=== PATIENT | female | born 1960 | race Caucasian/White ===

== ENCOUNTER 2016-05-28 08:58 | Observation (INO) | payer BC ==
[2016-05-24 16:43] LABS: BASOPHILS 0.3 %; BASOPHILS ABSOLUTE 0.02 10/3/uL (0.0-0.16); EOSINOPHILS 1.6 %; EOSINOPHILS ABSOLUTE 0.12 10/3/uL (0.0-0.53); HEMATOCRIT 41.7 % (36.0-48.0); HEMOGLOBIN 13.8 g/dL (12.0-16.0); IMMATURE GRANULOCYTES 0.3 %; IMMATURE GRANULOCYTES ABSOLUTE 0.02 10/3/uL (0.0-0.11); LYMPHOCYTES 28.4 %; LYMPHOCYTES ABSOLUTE 2.17 10/3/uL (0.67-4.30); MEAN CORPUS HGB CONC 33.1 g/dL (32.0-36.0); MEAN CORPUSCULAR HEMOGLOB 27.5 pg (26.0-34.0); MEAN CORPUSCULAR VOLUME 83.1 fL (80-100); MEAN PLATELET VOLUME 10.1 fL (9.2-13.0); MONOCYTES ABSOLUTE 0.46 10/3/uL (0.21-1.20); NEUTROPHILS 63.4 %; NEUTROPHILS ABSOLUTE 4.84 10/3/uL (2.02-8.40); PLATELET COUNT 245 10/3/uL (150-400); RBC DISTRIBUTION WIDTH 13.8 % (12.0-16.0); RED CELL COUNT 5.02 10/6/uL (4.0-5.6); WHITE BLOOD CELLS 7.6 10/3/uL (4.5-10.5)
[2016-05-24 16:44] LABS: MANUAL DIFF NO %
[2016-05-24 16:55] LABS: BUN (BLOOD UREA NITROGEN) 11 MG/DL (6-23); CALCIUM, SERUM 8.5 MG/DL (8.5-10.4); CHLORIDE, SERUM 102 MMOL/L (96-112); CO2 (CARBON DIOXIDE) 32 MMOL/L (24-34); CREATININE 0.86 MG/DL (0.55-1.02); GFR AFRICAN AMERICAN 87 ML/MIN (>=60); GFR NON AFRICAN AMERICAN 75 ML/MIN (>=60); POTASSIUM, SERUM 3.4 MMOL/L (3.5-5.3); SODIUM, SERUM 142 MMOL/L (135-148)
[2016-05-24 16:56] LABS: GLUCOSE, SERUM 131 MG/DL (60-99)
--- NOTE | ~2016-05-28 | OP ---
Record Of Operation [facility] [address] [place]. [address] NAME: SHIVAM VILLAGOMEZ : 56 STATUS : DIS Niharika PAT#: [id number] AGE: 55 ADM/REG DATE : 05/28/16 MR#: [id number] REPORT SERV DATE: 05/31/16 DICTATED BY: BUD WYNN DATE: 05/30/16 REPORT STATUS : Draft TRANSCRIBED BY: MODL DATE: 05/30/16 DATE OF PROCEDURE: 05/28/2016 PREOPERATIVE DIAGNOSIS: Squamous cell carcinoma of unknown primary. POSTOPERATIVE DIAGNOSIS: Squamous cell carcinoma of unknown primary. PROCEDURE: Left inguinal-femoral groin node dissection, CPT code 13971. Cystoscopy, CPT code 58149. SURGEON: Bud Wynn M.D. STRIPPER APPRENTICE: Danya Graham. ESTIMATED BLOOD LOSS: 75 mL. FLUIDS IN: 1200 mL of crystalloid. COMPLICATIONS: None. INDICATIONS AND FINDINGS: This is a 55-year-old female, who recently had a biopsy of a groin lymph node that returned consistent with a squamous cell carcinoma. The CT/PET scan was performed, revealing no other evidence of disease. Her office examination revealed a grossly normal vagina and cervix. Pap smear was performed, which was read as benign. A rectovaginal exam was performed. The anus revealed no evidence of tumor. There was no palpable tumor. A cystoscopy was performed in the operating room with no gross evidence of tumor in the urethra. She was noted to have approximately a 4 to 5 cm lymph node that was densely adherent to the saphenous vein with adherence to the femoral artery. The lymph nodes were dissected free of both the saphenous vein and the femoral vessel to remove the node in total; however, she elected to have a microscopic positive diagnosis in this area. The area was clearly marked with multiple hemoclips for postoperative radiation. PROCEDURE IN DETAILS: The patient was taken to the operating room, and she was placed in a supine position for administration of general anesthesia. She was then placed in dorsal lithotomy position, prepped and draped in the usual sterile fashion. An incision was made between the anterior-superior iliac spine on the left and the left pubic tubercle. It was taken down to the underlying layer of José Miguel's fascia. An inferior and superior flap was raised. The dissection was then carried down to the pectineus fascia. A saphenous vein was clearly identified and spared. The lymphatic complex that was abnormal was densely adherent to the saphenous vein and the fascia overlying the femoral artery. Again, this was dissected free of both the vein and the artery, and the lymphatic tissue surrounding this area was removed within the boundaries of the adductor longus muscle, sartorius, and inguinal ligament. The dissection was sent to pathology and labelled as left groin node dissection. At the completion of the dissection, the site was irrigated with copious amounts of warm water. All sites were noted to be hemostatic. A AZAEL drain was placed through a separate stab incision. The subcutaneous tissues were reapproximated using 0 Record Of Operation [address] [address] NAME: SHIVAM VILLAGOMEZ : 56 STATUS : DIS Niharika PAT#: [id number] AGE: 55 ADM/REG DATE : 05/28/16 MR#: [id number] REPORT SERV DATE: 05/31/16 DICTATED BY: BUD WYNN DATE: 05/30/16 REPORT STATUS : Draft TRANSCRIBED BY: TAQUERIA DATE: 05/30/16 Vicryl, and the skin was closed with running subcuticular 4-0 Monocryl and Dermabond was placed. Post procedure, the anesthesia was reversed. The patient was taken to the recovery room. KULWINDER/TAQUERIA Bud Wynn M.D. / [phone]
[~2016-05-28 08:58] MED LIST: EFFEXXR75 PO; MICARDIS HCT PO; PRILOSEC40 MG PO
[2016-05-29 05:40] LABS: BASOPHILS 0.1 %; BASOPHILS ABSOLUTE 0.01 10/3/uL (0.0-0.16); EOSINOPHILS 0 %; HEMOGLOBIN 12.1 g/dL (12.0-16.0); IMMATURE GRANULOCYTES 0.2 %; IMMATURE GRANULOCYTES ABSOLUTE 0.03 10/3/uL (0.0-0.11); LYMPHOCYTES 7.9 %; LYMPHOCYTES ABSOLUTE 1.07 10/3/uL (0.67-4.30); MEAN CORPUS HGB CONC 32.6 g/dL (32.0-36.0); MEAN CORPUSCULAR HEMOGLOB 28.2 pg (26.0-34.0); MEAN PLATELET VOLUME 10.1 fL (9.2-13.0); MONOCYTES 7.2 %; MONOCYTES ABSOLUTE 0.98 10/3/uL (0.21-1.20); NEUTROPHILS 84.6 %; NEUTROPHILS ABSOLUTE 11.54 10/3/uL (2.02-8.40); PLATELET COUNT 215 10/3/uL (150-400); RBC DISTRIBUTION WIDTH 13.9 % (12.0-16.0); RED CELL COUNT 4.29 10/6/uL (4.0-5.6)
[2016-05-29 05:41] LABS: HEMATOCRIT 37.1 % (36.0-48.0); MANUAL DIFF NO %; MEAN CORPUSCULAR VOLUME 86.5 fL (80-100); WHITE BLOOD CELLS 13.6 10/3/uL (4.5-10.5)
[2016-05-29 05:48] LABS: BUN (BLOOD UREA NITROGEN) 15 MG/DL (6-23); CALCIUM, SERUM 8.1 MG/DL (8.5-10.4); CHLORIDE, SERUM 103 MMOL/L (96-112); CO2 (CARBON DIOXIDE) 30 MMOL/L (24-34); CREATININE 1.12 MG/DL (0.55-1.02); GFR AFRICAN AMERICAN 63 ML/MIN (>=60); GFR NON AFRICAN AMERICAN 54 ML/MIN (>=60); GLUCOSE, SERUM 135 MG/DL (60-99); POTASSIUM, SERUM 3.6 MMOL/L (3.5-5.3); SODIUM, SERUM 142 MMOL/L (135-148)
[2016-05-29] MEDS ORDERED: PCET PO (11:19)
[2016-05-29] MEDS ORDERED: ZOFRANODT8 (11:20)
[2016-05-29] MEDS ORDERED: MIRALAX POWDER1 PKT PO (11:21)
== END 2016-05-29 13:30 | disposition home or self-care (01) ==
LOC: SDC 08:58 → 4EA 15:36
PROVIDERS: Obstetrics & Gynecology Gynecologic Oncology
PROC: 07BJ0ZZ Excision of Left Inguinal Lymphatic, Open Approach (ICD-10-PCS; principal; 2016-05-28 10:30)
PROC: 0TJB8ZZ Inspection of Bladder, Via Natural or Artificial Opening Endoscopic (ICD-10-PCS; 2016-05-28 10:30)
DX: C79.89 Secondary malignant neoplasm of other specified sites (principal); C80.1 Malignant (primary) neoplasm, unspecified; G43.909 Migraine, unspecified, not intractable, without status migrainosus; K21.9 Gastro-esophageal reflux disease without esophagitis; I10 Essential (primary) hypertension; F32.9 Major depressive disorder, single episode, unspecified; Z87.442 Personal history of urinary calculi; Z88.2 Allergy status to sulfonamides; Z88.8 Allergy status to other drugs, medicaments and biological substances; Z98.890 Other specified postprocedural states
CPT/HCPCS: 80048; 85025; 88307; 90686; 90732; 93005; 96372; 96374; 96375; 96376; A9270-GY; G0008; G0009; G0378; J0690; J0694; J1885; J2250; J2370; J2405; J3010

== ENCOUNTER 2016-06-23 05:30 | Day surgery (SDC) | payer BC ==
--- NOTE | ~2016-06-23 | EGD ---
EGD REPORT [facility] [address] [place] [address] NAME: YUDI BAUER : 56 STATUS : REG [facility] PAT#: [id number] AGE: 55 ADM/REG DATE : 06/23/16 MR#: [id number] REPORT SERV DATE: 06/23/16 DICTATED BY: ROSHNI MONTGOMERY DATE: 06/23/16 REPORT STATUS : Draft TRANSCRIBED BY: [facility] DATE: 06/23/16 Endoscopy Center Patient Name: Yudi Bauer Date of : 1960 Attending MD: MAGAN MONTGOMERY MD Procedure Date No Time: 06/23/2016 Procedure: Upper GI endoscopy Indications: Gastro-esophageal reflux disease, Metastativ squamous cell cancer of unknown primary Referring MD: AMY HARVEY, German Gaytan, NIKITA WYNN MD Medicines: See the Anesthesia note for documentation of the administered medications Complications: No immediate complications. Estimated blood loss: None. Procedure: Pre-Anesthesia Assessment: - ASA Grade Assessment: III - A patient with severe systemic disease. - Prior to the procedure, a History and Physical was performed, and patient medications and allergies were reviewed. The patient's tolerance of previous anesthesia was also reviewed. The risks and benefits of the procedure and the sedation options and risks were discussed with the patient. All questions were answered, and informed consent was obtained. Prior Anticoagulants: The patient has taken no previous anticoagulant or antiplatelet agents. After reviewing the risks and benefits, the patient was deemed in satisfactory condition to undergo the procedure. After obtaining informed consent, the endoscope was passed under direct vision. Throughout the procedure, the patient's blood pressure, pulse, and oxygen saturations were monitored continuously. The GIF H190 [id number] was introduced through the mouth, and advanced to the second part of duodenum. The upper GI endoscopy was accomplished without difficulty. The patient tolerated the procedure well. Findings: The examined duodenum was normal. Normal mucosa was found in the stomach. Biopsy with a cold forceps was performed for histology. Multiple 3 to 6 mm sessile polyps with no stigmata of recent bleeding were found in the stomach. These polyps were removed with a cold snare. Polyp resection was incomplete. The resected tissue was retrieved. A 4 cm hiatus hernia was present. EGD REPORT [address] [address] NAME: YUDI BAUER : 56 STATUS : REG [facility]#: [id number] AGE: 55 ADM/REG DATE : 06/23/16 MR#: [id number] REPORT SERV DATE: 06/23/16 DICTATED BY: ROSHNI MONTGOMERY DATE: 06/23/16 REPORT STATUS : Draft TRANSCRIBED BY: [employer] DATE: 06/23/16 The lower third of the esophagus was moderately tortuous. Impression: - Normal examined duodenum. - Normal mucosa was found in the stomach. Biopsied. - Multiple gastric polyps. Incomplete resection. Resected tissue retrieved. - Hiatus hernia. - Tortuous esophagus. Recommendation: - Patient has a contact number available for emergencies. The signs and symptoms of potential delayed complications were discussed with the patient. Return to normal activities tomorrow. Written discharge instructions were provided to the patient. - Regular diet. - Discharge patient to home. - Continue present medications. - Await pathology results. Procedure Code(s): --- Professional --- 29939, Esophagogastroduodenoscopy, flexible, transoral; with removal of tumor(s), polyp(s), or other lesion(s) by snare technique Diagnosis Code(s): --- Professional --- K31.7, Polyp of stomach and duodenum K44.9, Diaphragmatic hernia without obstruction or gangrene Q39.9, Congenital malformation of esophagus, unspecified K21.9, Gastro-esophageal reflux disease without esophagitis CPT copyright 2013 [employer]. All rights reserved. The codes documented in this report are preliminary and upon solar panel installer review may be revised to meet current compliance requirements. MAGAN MONTGOMERY MD 06/23/2016 7:20 AM This report has been signed electronically. Number of Addenda: 0 Note Initiated On: 06/23/2016 6:51 AM Scope Withdrawal Time 0 hours 0 minutes 0 seconds EGD REPORT [place] [address] [place] [address] NAME: YUDI BAUEROLS : 56 STATUS : REG [facility] PAT#: [id number] AGE: 55 ADM/REG DATE : 06/23/16 MR#: [id number] REPORT SERV DATE: 06/23/16 DICTATED BY: ROSHNI MONTGOMERY DATE: 06/23/16 REPORT STATUS : Draft TRANSCRIBED BY: [employer] DATE: 06/23/16 [facility] [address] [place] [address]
--- NOTE | ~2016-06-23 | EGD ---
EGD REPORT [facility] [address] [address] NAME: YUDI BAUER : 56 STATUS : REG [facility] PAT#: [id number] AGE: 55 ADM/REG DATE : 06/23/16 MR#: [id number] REPORT SERV DATE: 06/23/16 DICTATED BY: ROSHNI MONTGOMERY DATE: 06/23/16 REPORT STATUS : Draft [facility]: [facility] DATE: 06/23/16 Endoscopy Center Patient Name: Yudi Bauer Date of : 1960 Attending MD: MAGAN MONTGOMERY MD Procedure Date No Time: 06/23/2016 Procedure: Colonoscopy Indications: Screening for colorectal malignant neoplasm, This is the patient's first colonoscopy, also squamous cell carcinoma of unknown primary Referring MD: AMY HARVEY, German Gaytan, NIKITA WYNN MD Medicines: See the Anesthesia note for documentation of the administered medications Complications: No immediate complications. Estimated blood loss: Minimal. Procedure: Pre-Anesthesia Assessment: - ASA Grade Assessment: III - A patient with severe systemic disease. - Prior to the procedure, a History and Physical was performed, and patient medications and allergies were reviewed. The patient's tolerance of previous anesthesia was also reviewed. The risks and benefits of the procedure and the sedation options and risks were discussed with the patient. All questions were answered, and informed consent was obtained. Prior Anticoagulants: The patient has taken no previous anticoagulant or antiplatelet agents. After reviewing the risks and benefits, the patient was deemed in satisfactory condition to undergo the procedure. After I obtained informed consent, the scope was passed under direct vision. Throughout the procedure, the patient's blood pressure, pulse, and oxygen saturations were monitored continuously. The PCF [id number] was introduced through the anus and advanced to the cecum, identified by appendiceal orifice and ileocecal valve. The ileocecal valve, appendiceal orifice and rectum were photographed. The entire colon was examined. The colonoscopy was technically difficult and complex due to a tortuous colon and very angulated and fixed sigmoid colon. Successful completion of the procedure was aided by using scope torsion. The patient tolerated the procedure well. The quality of the bowel preparation was adequate. EGD REPORT [address] [address] NAME: YUDI BAUER : 56 STATUS : REG [facility]#: [id number] AGE: 55 ADM/REG DATE : 06/23/16 MR#: [id number] REPORT SERV DATE: 06/23/16 DICTATED BY: ROSHNI MONTGOMERY DATE: 06/23/16 REPORT STATUS : Draft TRANSCRIBED BY: [employer] DATE: 06/23/16 Findings: The perianal and digital rectal examinations were normal. A sessile polyp was found in the proximal transverse colon. The polyp was 3 mm in size. The polyp was removed with a cold biopsy forceps. Resection and retrieval were complete. A sessile polyp was found in the mid transverse colon. The polyp was 6 mm in size. The polyp was removed with a cold snare. Resection and retrieval were complete. A sessile polyp was found at 20 cm proximal to the anus. The polyp was 12 mm in size. The polyp was removed with a hot snare. Resection and retrieval were complete. A sessile polyp was found at 15 cm proximal to the anus. The polyp was 20 mm in size. The polyp was removed with a hot snare. Resection and retrieval were complete. A few small and large-mouthed diverticula were found in the entire colon. Non-bleeding internal hemorrhoids were found during retroflexion and were Grade I (internal hemorrhoids that do not prolapse). Impression: - One 3 mm polyp in the proximal transverse colon. Resected and retrieved. - One 6 mm polyp in the mid transverse colon. Resected and retrieved. - One 12 mm polyp at 20 cm proximal to the anus. Resected and retrieved. - One 20 mm polyp at 15 cm proximal to the anus. Resected and retrieved. - Diverticulosis in the entire examined colon. - Non-bleeding internal hemorrhoids. Recommendation: - Patient has a contact number available for emergencies. The signs and symptoms of potential delayed complications were discussed with the patient. Return to normal activities tomorrow. Written discharge instructions were provided to the patient. - High fiber diet indefinitely. - Discharge patient to home. - Continue present medications. - Await pathology results. - Repeat colonoscopy in 2 years for surveillance. Procedure Code(s): --- Professional --- 03414, Colonoscopy, flexible, proximal to splenic flexure; with removal of tumor(s), polyp(s), or other lesion(s) by snare technique 31828, 59, Colonoscopy, flexible, proximal to splenic flexure; with biopsy, single or multiple EGD REPORT [address] [place]. [address] NAME: YUDI BAUER : 56 STATUS : REG [facility]#: [id number] AGE: 55 ADM/REG DATE : 06/23/16 MR#: [id number] REPORT SERV DATE: 06/23/16 DICTATED BY: ROSHNI MONTGOMERY DATE: 06/23/16 REPORT STATUS : Draft TRANSCRIBED BY: [employer] DATE: 06/23/16 Diagnosis Code(s): --- Professional --- D12.6, Benign neoplasm of colon, unspecified D12.3, Benign neoplasm of transverse colon K64.0, First degree hemorrhoids K57.30, Diverticulosis of large intestine without perforation or abscess without bleeding Z12.11, Encounter for screening for malignant neoplasm of colon CPT copyright 2013 [employer] [place]. All rights reserved. The codes documented in this report are preliminary and upon inclusion intern review may be revised to meet current compliance requirements. MAGAN MONTGOMERY MD 06/23/2016 7:58 AM This report has been signed electronically. Number of Addenda: 0 Note Initiated On: 06/23/2016 6:51 AM Scope Withdrawal Time 0 hours 27 minutes 48 seconds [address] [place] [address]
[~2016-06-23 05:30] MED LIST changes: +MIRALAX POWDER1 PKT PO; +PCET PO; +ZOFRANODT8
== END 2016-06-23 23:59 | disposition home or self-care (01) ==
LOC: DMU 05:30
PROVIDERS: Internal Medicine Gastroenterology
PROC: 0DBF8ZX Excision of Right Large Intestine, Via Natural or Artificial Opening Endoscopic, Diagnostic (ICD-10-PCS; 2016-06-23)
PROC: 0DB68ZX Excision of Stomach, Via Natural or Artificial Opening Endoscopic, Diagnostic (ICD-10-PCS; principal; 2016-06-23 07:00)
PROC: 0DB68ZX Excision of Stomach, Via Natural or Artificial Opening Endoscopic, Diagnostic (ICD-10-PCS; 2016-06-23 07:00)
PROC: 0DBE8ZX Excision of Large Intestine, Via Natural or Artificial Opening Endoscopic, Diagnostic (ICD-10-PCS; 2016-06-23 07:00)
PROC: 0DBL8ZX Excision of Transverse Colon, Via Natural or Artificial Opening Endoscopic, Diagnostic (ICD-10-PCS; 2016-06-23 07:00)
DX: Z12.11 Encounter for screening for malignant neoplasm of colon (principal); D12.3 Benign neoplasm of transverse colon; K64.0 First degree hemorrhoids; K57.30 Diverticulosis of large intestine without perforation or abscess without bleeding; D13.1 Benign neoplasm of stomach; K31.7 Polyp of stomach and duodenum; K44.9 Diaphragmatic hernia without obstruction or gangrene; K21.9 Gastro-esophageal reflux disease without esophagitis; I10 Essential (primary) hypertension; F41.9 Anxiety disorder, unspecified; G43.909 Migraine, unspecified, not intractable, without status migrainosus; F32.9 Major depressive disorder, single episode, unspecified; Z88.2 Allergy status to sulfonamides; Z88.0 Allergy status to penicillin; Z88.5 Allergy status to narcotic agent; Z88.6 Allergy status to analgesic agent; Z88.8 Allergy status to other drugs, medicaments and biological substances; Z90.89 Acquired absence of other organs; Z98.890 Other specified postprocedural states
CPT/HCPCS: 80048; 85025; 88305; 93005; J2250; J2370; J2405; J2550

== ENCOUNTER 2016-06-24 12:49 | Day surgery (SDC) | payer BC ==
[2016-06-23 11:00] LABS: BASOPHILS 0.4 %; BASOPHILS ABSOLUTE 0.03 10/3/uL (0.0-0.16); EOSINOPHILS 1.1 %; EOSINOPHILS ABSOLUTE 0.09 10/3/uL (0.0-0.53); HEMATOCRIT 40.6 % (36.0-48.0); HEMOGLOBIN 13.6 g/dL (12.0-16.0); IMMATURE GRANULOCYTES 0.2 %; IMMATURE GRANULOCYTES ABSOLUTE 0.02 10/3/uL (0.0-0.11); LYMPHOCYTES 18.3 %; LYMPHOCYTES ABSOLUTE 1.52 10/3/uL (0.67-4.30); MEAN CORPUS HGB CONC 33.5 g/dL (32.0-36.0); MEAN CORPUSCULAR HEMOGLOB 28.2 pg (26.0-34.0); MEAN CORPUSCULAR VOLUME 84.1 fL (80-100); MEAN PLATELET VOLUME 10.8 fL (9.2-13.0); MONOCYTES 8.1 %; MONOCYTES ABSOLUTE 0.67 10/3/uL (0.21-1.20); NEUTROPHILS 71.9 %; NEUTROPHILS ABSOLUTE 5.99 10/3/uL (2.02-8.40); PLATELET COUNT 229 10/3/uL (150-400); RBC DISTRIBUTION WIDTH 13.8 % (12.0-16.0); RED CELL COUNT 4.83 10/6/uL (4.0-5.6); WHITE BLOOD CELLS 8.3 10/3/uL (4.5-10.5)
[2016-06-23 11:01] LABS: MANUAL DIFF NO %
[2016-06-23 11:12] LABS: CALCIUM, SERUM 8.6 MG/DL (8.5-10.4); CHLORIDE, SERUM 98 MMOL/L (96-112); CO2 (CARBON DIOXIDE) 33 MMOL/L (24-34); GFR AFRICAN AMERICAN 82 ML/MIN (>=60); GFR NON AFRICAN AMERICAN 71 ML/MIN (>=60); GLUCOSE, SERUM 110 MG/DL (60-99); POTASSIUM, SERUM 3.5 MMOL/L (3.5-5.3); SODIUM, SERUM 140 MMOL/L (135-148)
[2016-06-23 11:13] LABS: BUN (BLOOD UREA NITROGEN) 10 MG/DL (6-23)
--- NOTE | ~2016-06-24 | OP ---
Record Of Operation [facility] [address] [place]. [address] NAME: SHIVAM VILLAGOMEZ : 56 STATUS : [facility]#: [id number] AGE: 55 ADM/REG DATE : 06/24/16 MR#: [id number] REPORT SERV DATE: 06/24/16 DICTATED BY: ARYA RYAN DATE: 06/24/16 REPORT STATUS : Draft TRANSCRIBED BY: MODL DATE: 06/24/16 DATE OF PROCEDURE: 06/24/2016 PREOPERATIVE DIAGNOSIS: Squamous cell carcinoma of unknown primary. POSTOPERATIVE DIAGNOSIS: Squamous cell carcinoma of unknown primary. PROCEDURE: Right IJ port. SURGEON: Arya Ryan M.D. ANESTHESIA: Local with sedation. COMPLICATIONS: None. ESTIMATED BLOOD LOSS: 30 mL. HISTORY: The patient is a 55-year-old female in need of a port for chemotherapy. The risks, benefits, and alternatives were discussed in detail with the patient. The patient expressed understanding and desire to proceed DESCRIPTION OF PROCEDURE: The patient was taken to the operating room and placed in the supine position. She was given IV sedation complication. Her neck and chest were prepped and draped in a sterile fashion. Ultrasound was used to identify the internal jugular vein on the right. Patency was confirmed with compression. 1% lidocaine infiltrated here and onto the chest wall at the site for port placement. Under ultrasound guidance, an 18-gauge needle was placed into the internal jugular vein. Wire passed into the SVC and IVC, which was confirmed with fluoroscopy. The needle was removed. A transverse incision was created on the chest wall for the port. Bovie cautery was used to create a pocket for the port. The catheter for the port was tunneled from the port site to the access site. Using fluoroscopic guidance, a length of 12 cm from the access site and 17 cm from the port site was chosen. The catheter was cut to the appropriate length and secured to the port with the fastening device. The port was secured to the pocket with multiple 3-0 Prolene sutures. Under fluoroscopic guidance, the peel-away sheath and dilator passed over the wire in the SVC. The wire and dilator were removed. The catheter was placed through the peel-away sheath. The sheath was peeled away without difficulty. The port was aspirated and flushed without difficulty. The port site was closed with running 3-0 Vicryl suture, followed by running 4-0 Monocryl suture. The access site was closed with 4-0 Monocryl suture. The port was accessed with an access kit, aspirated, and flushed without difficulty. The incisions were dressed with Dermabond. The Blevins needle and access kit were dressed with 4x4's. The patient tolerated the procedure well. She was taken to the recovery room in stable condition. CSJ/MODL Record Of [address] [place]. [address] NAME: SHIVAM VILLAGOMEZ : 56 STATUS : [facility] PAT#: [id number] AGE: 55 ADM/REG DATE : 06/24/16 MR#: [id number] REPORT SERV DATE: 06/24/16 DICTATED BY: ARYA RYAN DATE: 06/24/16 REPORT STATUS : Draft TRANSCRIBED BY: TAQUERIA DATE: 06/24/16 Arya Ryan M.D. / [id number] CC: Kaylee Rodríguez M.D.
== END 2016-06-24 18:01 | disposition home or self-care (01) ==
LOC: SDC 12:49
PROVIDERS: Surgery
PROC: 0JHD0XZ Insertion of Tunneled Vascular Access Device into Right Upper Arm Subcutaneous Tissue and Fascia, Open Approach (ICD-10-PCS; principal; 2016-06-24 15:00)
DX: C44.92 Squamous cell carcinoma of skin, unspecified (principal); I10 Essential (primary) hypertension; G43.909 Migraine, unspecified, not intractable, without status migrainosus; F32.9 Major depressive disorder, single episode, unspecified; K21.9 Gastro-esophageal reflux disease without esophagitis; Z88.2 Allergy status to sulfonamides; Z88.0 Allergy status to penicillin; Z88.5 Allergy status to narcotic agent; Z90.89 Acquired absence of other organs
CPT/HCPCS: 36561; 77001; 80048; 85025; 93005; A9270-GY; C1788; J0690; J2250; J2370; J2405; J3010